=== PATIENT | male | born 1975 | race Hispanic/Latino ===

== ENCOUNTER 2021-02-11 15:27 | Emergency (ER) | payer OTHER, SELFPAY ==
[2021-02-11] MEDS ORDERED: Ondansetron PF 4 MG/2 ML Vial ONE (15:40)
[2021-02-11] MEDS ORDERED: Morphine 4 MG/ML VIAL ONE ×2 (15:40→17:26)
[2021-02-11 16:08] LABS: #Lymphocytes 0.8 thou/uL (1.20-3.40); #Monocytes 0.4 thou/uL (0.11-0.59); #Neutrophils 4.9 thou/uL (1.40-6.50); %Basophils 0.5 % (0.0-1.0); %Eosinophils 0.3 % (0.0-10.0); %Lymphocytes 12.6 % (21.0-51.0); %Monocytes 6.3 % (0.0-10.0); %Neutrophils 80.3 % (42.0-75.0); Mean Corpuscular HGB CONC 34.5 g/dL (32.0-36.0); Mean Corpuscular Hemoglobin 32.1 pg (27.0-31.0); Mean Corpuscular Volume 92.9 fL (78.0-98.0); Mean Platelet Volume 8.4 fL (7.4-10.4); Platelet Count 141 thou/uL (130-400); RBC Distribution Width 12.3 % (11.5-14.5); Red Blood Cell (RBC) Count 4.99 mill/uL (4.70-6.10); White Blood Cell (WBC) Count 6.1 thou/uL (4.8-10.8)
[2021-02-11 16:28] LABS: ALT (SGPT) 38 U/L (8-55); AST (SGOT) 21 U/L (5-34); Albumin 4.4 g/dL (3.5-5.0); Alkaline Phosphatase 146 U/L (40-110); Anion Gap 13 mmol/L (10-20); BUN (Urea Nitrogen) 10 mg/dL (8.9-20.6); Bilirubin, Total 1.2 mg/dL (0.2-1.2); Calc. Creatinine Clearance 0 mL/min (70-130); Calcium 9.4 mg/dL (7.8-10.44); Carbon Dioxide 25 mmol/L (22-29); Chloride 103 mmol/L (98-107); Globulin 3.6 g/dL (2.4-3.5); Glucose 128 mg/dL (70-105); Lipase 29 U/L (8-78); Potassium 3.4 mmol/L (3.5-5.1); Sodium 138 mmol/L (136-145)
[2021-02-11 16:39] LABS: Bacteria/HPF None Seen HPF (None Seen); Bilirubin Negative (Negative); Blood, Urine Negative (Negative); Clarity Clear (Clear); Glucose, Urine (Dipstick) Normal (Negative); Ketone, Urine 80 mg/dL (Negative); Leukocyte Negative Leu/uL (Negative); Nitrite Negative (Negative); Protein, Urine (Dipstick) 30 mg/dL (Neg-Trace); RBC/HPF 0-3 HPF (0-3); Specific Gravity, Urine 1.027 (1.002-1.036); Squamous Epithelial None Seen HPF (0-3); Urobilinogen Normal mg/dL (Less than 2); WBC/HPF 0-3 HPF (0-3)
[2021-02-11] MEDS ORDERED: Metoclopramide HCl 10 MG/2 ML VIAL ONE (17:33)
== END 2021-02-11 19:04 | disposition home or self-care (01) ==
LOC: ERS 15:27
DX: K80.20 Calculus of gallbladder without cholecystitis without obstruction (principal)
CPT/HCPCS: 74177; 76705; 80053; 81003; 81015; 83690; 85025; 96365; 96375; 96376; J2270; J2405; J2765

== ENCOUNTER 2021-02-12 10:31 | Observation (INO) | payer SELFPAY ==
[2021-02-12 11:51] LABS: #Basophils 0.1 thou/uL (0.0-0.2); #Lymphocytes 0.9 thou/uL (1.20-3.40); #Neutrophils 7.3 thou/uL (1.40-6.50); %Basophils 0.7 % (0.0-1.0); %Eosinophils 0.3 % (0.0-10.0); %Lymphocytes 9.2 % (21.0-51.0); %Monocytes 10.3 % (0.0-10.0); %Neutrophils 79.5 % (42.0-75.0); Hemoglobin 15.2 g/dL (14.0-18.0); Mean Corpuscular HGB CONC 34.1 g/dL (32.0-36.0); Mean Corpuscular Hemoglobin 31.8 pg (27.0-31.0); Mean Corpuscular Volume 93.1 fL (78.0-98.0); Mean Platelet Volume 8.2 fL (7.4-10.4); Platelet Count 142 thou/uL (130-400); RBC Distribution Width 12.2 % (11.5-14.5); Red Blood Cell (RBC) Count 4.77 mill/uL (4.70-6.10); White Blood Cell (WBC) Count 9.2 thou/uL (4.8-10.8)
[2021-02-12] MEDS ORDERED: Morphine 4 MG/ML VIAL ONE (11:51)
[2021-02-12] MEDS ORDERED: Ondansetron PF 4 MG/2 ML Vial ONE ×3 (11:51→22:05)
[2021-02-12] MEDS ORDERED: Ketorolac Tromethamine 30 MG/ML VIAL ONE ×3 (11:51→20:03)
[2021-02-12 12:18] LABS: ALT (SGPT) 37 U/L (8-55); AST (SGOT) 26 U/L (5-34); Albumin 4.2 g/dL (3.5-5.0); Alkaline Phosphatase 127 U/L (40-110); Anion Gap 13 mmol/L (10-20); BUN (Urea Nitrogen) 7 mg/dL (8.9-20.6); Bilirubin, Total 2.2 mg/dL (0.2-1.2); Calc. Creatinine Clearance 0 mL/min (70-130); Calcium 9.5 mg/dL (7.8-10.44); Carbon Dioxide 27 mmol/L (22-29); Chloride 99 mmol/L (98-107); Globulin 3.5 g/dL (2.4-3.5); Glucose 146 mg/dL (70-105); Lipase 22 U/L (8-78); Potassium 3.8 mmol/L (3.5-5.1); Protein, Total 7.7 g/dL (6.0-8.3); Sodium 135 mmol/L (136-145)
[2021-02-12] MEDS ORDERED: Piperacillin/Tazobactam 4.5 GM VIAL ONE (13:54)
[2021-02-12 15:53] LABS: SARS-CoV-2 NAA Rapid Test Not Detected (NotDetected)
[2021-02-12] MEDS ORDERED: Midazolam HCl 2 mg/2 ml Vial ONE (19:40)
[2021-02-12] MEDS ORDERED: Fentanyl 100 MCG/2 ML VIAL ONE (19:40)
[2021-02-12] MEDS ORDERED: Lidocaine 1% w/Epinephrine 1:100K 20 ML VIAL ONE (19:43)
[2021-02-12] MEDS ORDERED: Bupivacaine PF 0.5% 30 ML VIAL ONE (19:43)
[2021-02-12] MEDS ORDERED: Iothalamate Meglumine 60% 50 ML VIAL FS ONE (19:44)
[2021-02-12] MEDS ORDERED: PROPOFOL 200 MG/20 ML VIAL ONE (20:03)
[2021-02-12] MEDS ORDERED: Glycopyrrolate 0.2 MG/ML 5 ML SYRINGE ONE (20:03)
[2021-02-12] MEDS ORDERED: Rocuronium Bromide 10 MG/ML (10ML VIAL) ONE (20:03)
[2021-02-12] MEDS ORDERED: Dexamethasone 20 MG/5 ML VIAL ONE (20:03)
[2021-02-12] MEDS ORDERED: Lidocaine 1% PF 5 ML VIAL ONE (20:03)
[2021-02-12] MEDS ORDERED: Piperacillin/Tazobactam 3.375 GM VIAL ONE (20:33)
== END 2021-02-12 22:33 | disposition home or self-care (01) ==
LOC: ERS 10:31 → UNDOADMOB 14:05 → SURG A 14:05
PROVIDERS: ADMIT Specialist; ATTEND Specialist
PROC: 0FT44ZZ Resection of Gallbladder, Percutaneous Endoscopic Approach (ICD-10-PCS; principal; 2021-02-12)
PROC: BF121ZZ Fluoroscopy of Gallbladder using Low Osmolar Contrast (ICD-10-PCS; 2021-02-12)
DX: K80.00 Calculus of gallbladder with acute cholecystitis without obstruction (principal); K82.8 Other specified diseases of gallbladder; I89.8 Other specified noninfective disorders of lymphatic vessels and lymph nodes; Z20.822 Contact with and (suspected) exposure to COVID-19
CPT/HCPCS: 36415; 47532; 76705; 80053; 83690; 85025; 88304; 96374; 96375; C1713; J1100; J1610; J1885; J2250; J2270; J2405; J2543; J2704; J3010; Q9961-U8; S0020; U0002